=== PATIENT | female | born 2000 | race Caucasian/White ===

== ENCOUNTER 2019-12-13 08:15 | Emergency (ER) | payer MEDICAID, SELFPAY ==
[~2019-12-13] VITALS: Ht 180.3 cm; Wt 54.4 kg
[2019-12-13 08:20] VITALS: BP_SYST 141
--- NOTE | 2019-12-13 08:50 | NUR ---
Placed in room 07 . Placed on night monitor, blood pressure machine and pulse oximeter. To gown for exam. Side rails up.
--- NOTE | 2019-12-13 09:00 | NUR ---
pt arrives from home w/ c/o palpitation. Pt has been checking her pulse and stated that it was has high has 180. Pt was referred to a promotion specialist, however, has not been able to see a promotion specialist. Current EKG is SR. ekg monitor tech is in place.
--- NOTE | 2019-12-13 09:10 | NUR ---
ER at bedside examining patient.
--- NOTE | 2019-12-13 09:18 | NUR ---
EKG done and given to
[2019-12-13 09:30] VITALS: BP_SYST 141
--- NOTE | 2019-12-13 09:30 | NUR ---
Patient given written and verbal discharge instructions and verbalizes understanding. ER MD discussed with patient the results and treatment provided. Patient in stable condition. ID arm band removed. Patient educated on pain management and to follow up with PMD. Pain Scale 0/10. Opportunity for questions provided and answered. Medication side effect fact sheet provided.
== END 2019-12-13 09:30 | disposition home or self-care (01) ==
LOC: SED 08:15
DX: R00.2 Palpitations (principal); F41.9 Anxiety disorder, unspecified
CPT/HCPCS: 93005; 99283

== ENCOUNTER 2019-12-14 16:12 | Emergency (ER) | payer MEDICAID, SELFPAY ==
[~2019-12-14] VITALS: Ht 154.9 cm; Wt 54.4 kg
[2019-12-14 16:55] VITALS: BP_SYST 148
[2019-12-14 19:04] VITALS: BP_SYST 148
== END 2019-12-14 19:05 | disposition home or self-care (01) ==
LOC: SED 16:12
DX: R00.2 Palpitations (principal); F41.9 Anxiety disorder, unspecified; I10 Essential (primary) hypertension; Z88.0 Allergy status to penicillin
CPT/HCPCS: 81002; 93005; 99283

== ENCOUNTER 2020-01-21 20:14 | Emergency (ER) | payer MEDICAID, SELFPAY ==
[~2020-01-21] VITALS: Ht 154.9 cm; Wt 56.7 kg
[2020-01-21 20:22] VITALS: BP_SYST 147
--- NOTE | 2020-01-21 20:33 | NUR ---
RECEIVED AND IN ROOM, PT CALM, ALERT, REPORT TO RN
--- NOTE | 2020-01-21 20:35 | NUR ---
AUGUSTINA Munoz at bedside examining patient.
--- NOTE | 2020-01-21 20:37 | NUR ---
Pt presents to the ER for vaginal bump x three days. Pt reports pain when walking. Denies vaginal d/c, pain when urinating.
[2020-01-21 21:00] VITALS: BP_SYST 147
[2020-01-21] MEDS ORDERED: SULFAMETHOXAZOLE/TRIMETHOPR DS 1 TABLET PO ONE (21:00)
--- NOTE | 2020-01-21 21:00 | NUR ---
Patient given written and verbal discharge instructions and verbalizes understanding. ER MD discussed with patient the results and treatment provided. Patient in stable condition. ID arm band removed. I Rx of bactrim given. Patient educated on pain management and to follow up with PMD. Opportunity for questions provided and answered. Medication side effect fact sheet provided.
== END 2020-01-21 21:00 | disposition home or self-care (01) ==
LOC: SED 20:14
DX: N75.0 Cyst of Bartholin's gland (principal); Z88.0 Allergy status to penicillin
CPT/HCPCS: 99283

== ENCOUNTER 2020-01-24 02:17 | Emergency (ER) | payer MEDICAID ==
[~2020-01-24] VITALS: Ht 154.9 cm; Wt 56.7 kg
[2020-01-24 02:20] VITALS: BP_SYST 144
[2020-01-24] MEDS ORDERED: HYDROcodone/ACETAMIN 5-325 MG TAB (NORCO/ VICODIN) PO ONE (02:45)
[2020-01-24] MEDS ORDERED: KETOROLAC TROMETHAMINE 60 MG/2 ML VIAL IM ONE (02:45)
[2020-01-24] MEDS ORDERED: LIDOCAINE 1% 10 MG/ML, 20 ML MDV INJ ONE (04:45)
[2020-01-24 06:07] VITALS: BP_SYST 126
== END 2020-01-24 06:07 | disposition home or self-care (01) ==
LOC: SED 02:17
DX: N75.1 Abscess of Bartholin's gland (principal); Z88.0 Allergy status to penicillin
CPT/HCPCS: 56405; 81025; 96372; 99284; J1885; J2001

== ENCOUNTER 2020-01-26 08:52 | Emergency (ER) | payer MEDICAID ==
[~2020-01-26] VITALS: Ht 154.9 cm; Wt 56.7 kg
[2020-01-26 09:05] VITALS: BP_SYST 127
[2020-01-26 09:18] VITALS: BP_SYST 127
== END 2020-01-26 09:18 | disposition home or self-care (01) ==
LOC: SED 08:52
DX: Z48.00 Encounter for change or removal of nonsurgical wound dressing (principal); Z88.1 Allergy status to other antibiotic agents
CPT/HCPCS: 99281

== ENCOUNTER 2020-12-21 21:09 | Emergency (ER) | payer MEDICAID ==
[~2020-12-21] VITALS: Ht 154.9 cm; Wt 56.7 kg
[2020-12-21 21:18] VITALS: BP_SYST 117
--- NOTE | 2020-12-21 21:18 | NUR ---
Patient to ER bed 8 to gown for evaluation. Side rails up.
--- NOTE | 2020-12-21 21:20 | NUR ---
ER Dr. Clarke at bedside examining patient.
--- NOTE | 2020-12-21 21:20 | NUR ---
Patient BIB by family from home. C/O foreign body throat x 1 day. Patient reported, after ate chicken , felt something in left side of her throat. A/O,X4, throat pain, 3/10.
--- NOTE | 2020-12-21 22:02 | NUR ---
Returned from radiology, back to [facility].
[2020-12-21 22:17] VITALS: BP_SYST 117
--- NOTE | 2020-12-21 22:17 | NUR ---
Patient given written and verbal discharge instructions and verbalizes understanding. ER MD discussed with patient the results and treatment provided. Patient in stable condition. ID arm band removed. No Rx given. Patient educated on pain management and to follow up with PMD. Pain Scale 0/10. Opportunity for questions provided and answered.
== END 2020-12-21 22:17 | disposition home or self-care (01) ==
LOC: SED 21:09
DX: M79.5 Residual foreign body in soft tissue (principal); Z88.0 Allergy status to penicillin
CPT/HCPCS: 70360-TC; 81025; 99283